=== PATIENT | male | born 1970 | race Hispanic/Latino ===

== ENCOUNTER 2024-03-10 22:24 | Emergency (ER) | payer BC ==
--- OUTSIDE RECORDS SUMMARY | 2024-03-10 22:26 | XMS REPORT | Continuity of Care Document ---
Author Name Unknown Address [address] [place] [address] [facility] thconnect Address [address] [place] [address] Care Team Providers Care Parliamentary Archivist Name Role Phone LEO OSBORN Primary Care Physician Unavailab CAROLYN Garcia Attending Clinician Unavailable CAROLYN PURI Attending Clinician Unavailable Lilly MELENDEZ, Christopher Galaviz Attending Clinician [phone] Carolyn Puri MD Attending Clinician [phone] Payers Payer Name Policy Type Policy Number Effective Date Expirati on Date Source [facility] [id number] 2022 00:00:00 Allergies, Adverse Reactions, Alerts Allergy Name Allergy Type Status Severity Reaction(s) Onset Date Inactive Date Treating Clinician Comments Source NO KNOWN ALLERGIE S Drug Class Active [facility] Social History Social Habit Start Date Stop Date Quantity Comments Source Sexual orientation U [facility] Sex assigned at 1970 00:00:00 1970 00:00:00 [facility] Smoking Status Start Date Stop Date Source Tobacco smoking consumption unknown [facility] Medications Ordered Medication Name Filled Medication Name Start Date Stop Date Current Medication? Ordering Clinician Indication Dosage Frequency Signature (SIG) Comments Components Source cefTRIAXone (ROCEPHIN) 1,000 mg in NaCl 0.9% (NS) 100 mL MINI-BAG 01-19 01:45: 00 01-19 02:52 :00 No 1000mg 1,000 mg, IV Piggyback, ONCE, 1 dose, On 01/19/24 at 2045, Administer over 30 Minutes, 100 mL, Reason for Anti-Infec tive: Documented Infection, Documented Infection Site: Urine, Duration of Therapy: Once (ED) [facility] cefdinir 300 mg capsule 01-18 00:00: 00 Yes [id number] 300mg Take 1 capsule by mouth every 12 (twelve) hours. [facility] tamsulosin 0.4 mg 24 hr capsule 01-18 00:00: 00 Yes [id number] .4mg Take 1 capsule by mouth at bedtime. [facility] traMADoL (ULTRAM) 50 mg tablet 01-18 00:00: 00 Yes [id number] 50mg Take 1 tablet by mouth every 6 (six) hours as needed for Pain (scale 7-10). Indication s: acute pain [facility] ondansetron (ZOFRAN) 4 mg tablet 01-18 00:00: 00 Yes [id number] 4mg Take 1 tablet by mouth every 8 (eight) hours as needed for Nausea and Vomiting (N/V). [facility] Vital Signs Vital Name Observation Time Observation Value Comments S ource Systolic blood pressure 2024-01-20 02:30:00 122 mm[Hg] [facility] Diastolic blood pressure 2024-01-20 02:30:00 80 mm[Hg] [facility] Heart rate 2024-01-20 02:30:00 75 /min [facility] Oxygen saturation in Arterial blood by Pulse oximetry 2024-01-20 02:30:00 94 /min [facility] Body temperature 2024-01-19 23:07:00 37.28 Alicia [facility] Respiratory rate 2024-01-19 23:07:00 18 /min [facility] Body height 2024-01-19 23:07:00 167.6 cm [facility] Body weight 2024-01-19 23:07:00 83.915 kg [facility] BMI 2024-01-19 23:07:00 29.86 kg/m2 [facility] Procedures Procedure Date / Time Performed Performing Clinicia n Source CT ABDOMEN PELVIS WO CONTRAST 2024-01-20 00:34:54 Christopher Aden [facility] URINALYSIS 2024-01-19 23:40:00 Christopher Aden [facility] LIPASE 2024-01-19 23:38:00 Christopher Aden [facility] COMP. METABOLIC PANEL ([id number]) 2024-01-19 23:38:00 Christopher Aden [facility] CBC WITH DIFF 2024-01-19 23:38:00 [facility] COVID NAAT 2024-01-19 23:38:00 Christopher Aden [facility] Encounters Start Date/Time End Date/Time Encounter Type Admission Type Attending Clinicians Care Facility Care Department Encounter ID Source 2024-01-19 18:09:00 2024-01-19 21:58:00 Emergency X CAROLYN PURI WAKILI [facility] ERT [id number] [facility] 2024-01-19 18:09:00 2024-01-19 21:58:00 Emergency Lilly, Carolyn Tate S [facility] [id number] [facility] Results Test Description Test Time Test Comments Results Resul t Comments Source CT ABDOMEN PELVIS WO CONTRAST 2023-12-24 0 01:13:46 ORDERING PHYSICIAN: CHRISTOPHER ADEN HISTORY: ?Flank pain, kidney stone suspected left flank to LLQ pain TECHNIQUE: CT images were obtained through the abdomen and pelvis withoutIV or PO contrast. ?This examination was performed with a MARLEN principles. COMPARISON EXAMINATIONS: none available FINDINGS: Minimal bibasilar atelectasis versus scarring. Osseous structures appear intact. Mild hepatomegaly. No evidence for intrahepatic ductal dilatation or focalmass. Gallbladder demonstrates a normal noncontrast CT appearance. Spleen demonstrates a normal noncontrast CT appearance. Pancreas demonstrates a normal noncontrast CT appearance. Adrenal glands demonstrate a normal noncontrast CT appearance. The right renal collecting system demonstrates fullness without evidencefor azalea hydronephrosis. The right distal ureter appears dilated up to andincluding the ureterovesical junction. The left kidney demonstrates a staghorn type calculus in the upper pole.Small subcentimeter stones are noted in the lower pole, measuring up to 9mm. No evidence for left hydronephrosis. The left distal ureter appearsmildly dilated ureterovesical junction. No abnormally enlarged lymph nodes are noted. No evidence for bowel obstruction. A normal appearing appendix is not identified with certainty but there areno secondary signs to suggest acute appendicitis. No ascites is noted. Urinary bladder wall posteriorly demonstrates suggestion of mild focalthickening. [facility] Notes Date/Time Note Provider Source 2024-01-19 21:55:01 Dc instructions and prescriptions for cefdinir, tamsulosin, tramadol, and zofran reviewed with patient and his . They will fill the prescriptions and take as directed. They will contact the referred urologist's office in the morning for the follow up appointment. The patient denied need for pain med prior to DC. He left the Ed ambulatory with spouse-alert, warm, dry, pink, in no distress. RA [facility] Jairo Sloiz RN [facility] 2024-01-19 18:42:26 Patient states has frequency and left flank tenderness despite passing kidney stones on . Has been having fevers as well-temp 101 this morning. [facility] 2024-01-19 18:05:43 Patient states that he passed 3 kidney stones on and feels like he is still running fever. Patient was referred to the ER by the Urgent Care for urinary tract infection. [facility] 2024-01-19 17:49:00 [facility] Emergency Department Note Patient Name: Martin Kohli Date of : 1970 53 year old male Treatment Room: Room/bed info not found Primary Care Physician: No primary care provider on file. Patient Escorted by: Family [5] Mode of Arrival: Personal means [1] EMS Treatment Prior to ED Arrival: SOLAR TECH treatment: None Travel and Exposure Screening: Symptoms Does patient have any of these symptoms?: (not recorded) Exposure Screening Has patient had contact with someone with a communicable disease in the last month?: (not recorded) Diseases exposed to:: (not recorded) Is Patient ?: (not recorded) Exposure Date: (not recorded) Chief Complaint: Chief Complaint Patient presents with Fever History of Present Illness: Onset 01/12 with acute onset left flank pain radiating to LLQ. Constant with wax/wane intensity. Believes he passed three kidney stones on 01/15 resulting in improved pain level, though not resolved. (+) fever with tmax 103F at onset, and low grade persistent fever. (+) dysuria, malodorous urine. Took Azo and noted discoloration. (+) diaphoresis at onset. Transient nausea. No vomiting, diarrhea.. No history of kidney stones. No prior similar symptoms. History provided by: Patient and spouse Past Medical History/Immunizations: History reviewed. No pertinent past medical history. Tetanus received in last 5 years: Unknown Allergies: No Known Allergies Past Social History: Substance & Sexual Activity No substance use or sexual activity history on file. Past Surgical History: History reviewed. No pertinent surgical history. Review of Systems: Review of Systems Constitutional: Positive for fever. HENT: Negative. Eyes: Negative. Respiratory: Negative. Cardiovascular: Negative. Gastrointestinal: Positive for abdominal pain and nausea. Negative for diarrhea and vomiting. Genitourinary: Positive for dysuria, frequency and flank pain. Skin: Negative. Neurological: Negative. Psychiatric/Behavioral: Negative. Physical Exam: ED Triage Vitals [01/19/24 1807] Weight 83.9 kg (185 lb) Actual or estimated Height 1.676 m (5' 6") BP (!) 158/93 Pulse 78 Resp 18 Temp 37.3 ?C (99.1 ?F) Temp source Oral SpO2 99 % Measured on Room air Physical Exam Vitals and nursing note reviewed. Constitutional: General: He is not in acute distress. Appearance: Normal appearance. He is not ill-appearing, toxic-appearing or diaphoretic. HENT: Head: Normocephalic and atraumatic. Right Ear: External ear normal. Left Ear: External ear normal. Nose: Nose normal. Mouth/Throat: Mouth: Mucous membranes are moist. Eyes: Extraocular Movements: Extraocular movements intact. Conjunctiva/sclera: Conjunctivae normal. Cardiovascular: Rate and Rhythm: Normal rate and regular rhythm. Pulmonary: Effort: Pulmonary effort is normal. No respiratory distress. Breath sounds: Normal breath sounds. No wheezing, rhonchi or rales. Abdominal: General: There is no distension. Palpations: Abdomen is soft. Tenderness: There is no abdominal tenderness. There is left CVA tenderness. There is no right CVA tenderness. Musculoskeletal: General: Normal range of motion. Cervical back: Normal range of motion. Skin: General: Skin is warm and dry. Neurological: General: No focal deficit present. Mental Status: He is alert. Psychiatric: Mood and Affect: Mood normal. Behavior: Behavior normal. Thought Content: Thought content normal. Judgment: Judgment normal. Radiology: No orders to display Lab Results: Lab Results - No data to display EKG: If EKG completed, see Procedure Note. Orders and Treatments: Orders Placed This Encounter Procedures CT ABDOMEN PELVIS WO CONTRAST Influenza A B RSV COVID NAAT CBC WITH DIFF URINALYSIS COMP. METABOLIC PANEL (86374) LIPASE No orders of the defined types were placed in this encounter. First Provider Eval: ED Events Date/Time Event User Comments 01/19/241751 Medical Screening Begins CHRISTOPHER ADEN MD -- 01/19/241751 First Provider Evaluation CHRISTOPHER ADEN MD -- ED COURSE ED Course as of 01/19/242048 Sun Jan 19, 2024 182 Declines pain and nausea medication at time of initial assessment. [RK] ED Course User Index [RK] Christopher Aden MD Diagnosis/Impression as of 01/19/242048 Febrile illness Flank pain Renal calculi Acute cystitis without hematuria LATESHA (acute kidney injury) Procedures: Procedures MDM: Medical Decision Making Primary impression: left flank pain Secondary impression: nausea, recurrent fever Differential Diagnoses, including but not limited to: electrolyte / glucose abnl, anemia, LATESHA, kidney stone, cystitis, pyelonephritis Problems Addressed: Febrile illness: acute illness or injury Flank pain: acute illness or injury Amount and/or Complexity of Data Reviewed Independent Historian: Details: self Labs: ordered. Decision-making details documented in ED Course. Radiology: ordered. Decision-making details documented in ED Course. Risk Risk Details: Care transferred to Dr Puri at 1900 with studies and dispo pending. Flowsheet Documentation: Scoring Tools: No data recorded Disposition/Condition: ED Disposition None Discharge Medications: Patient's Medications No medications on file Follow-up: Care transferred to Dr Puri at 1900 with studies and dispo pending. Electronically signed by: Christopher Aden MD 01/19/241842 T [facility]
[2024-03-10] MEDS ORDERED: ACETAMINOPHEN 500 MG TAB ONE (22:49)
[2024-03-10] MEDS ORDERED: ONDANSETRON 4 MG/2 ML VIAL ONE (22:49)
[2024-03-10] MEDS ORDERED: MORPHINE 4 MG/ML SYR ONE (22:49)
[2024-03-10] MEDS ORDERED: NA CHLORIDE 0.9% 1,000 ML ONE (22:50)
[2024-03-10] MEDS ORDERED: CEFEPIME 2 GM VIAL ONE (22:50)
[2024-03-10] MEDS ORDERED: NA CHLORIDE 0.9% 3,000 ML ONE (22:50)
[2024-03-10] MEDS ORDERED: NA CHLORIDE 0.9% 100 ML ONE (22:51)
[2024-03-10] MEDS ORDERED: VANCOMYCIN 1 GM/VIAL ONE (22:51)
[2024-03-10 23:53] LABS: Specific Gravity 1.014 (1.005-1.030); Sqamous Epithelial None Seen /HPF (None Seen); Urine Bacteria 20-50 /HPF (<20); Urine Bilirubin NEGATIVE (Negative); Urine Blood 1+ (Negative); Urine Clarity Turbid (Clear); Urine Color Yellow (Yellow); Urine Culture Reflex Order REFLEXED; Urine Glucose NEGATIVE (Negative); Urine Ketones NEGATIVE (Negative); Urine Microscopic Reflex YN ORDER UMIC; Urine Mucus Slight /HPF (None Seen); Urine Nitrite NEGATIVE (Negative); Urine Protein TRACE (Negative); Urine Urobilinogen 1+ (Normal); Urine WBC 20-50 /HPF (<5); Urine WBC Clump Rare /HPF (None Seen)
[2024-03-10 23:54] LABS: Absolute Eosinophils 0.1 K/uL (0-0.5); Absolute Lymphocytes (CBC) 0.6 K/uL (0.7-4.9); Absolute Monocytes 0.1 K/uL (0.1-1.3); Absolute Neutrophil 4.3 K/uL (1.8-8.0); Basophils % 0.2 % (0-1.3); Eosinophils % 1.1 % (0-4.4); Hematocrit 33.4 % (39.6-49.0); Hemoglobin 11.9 g/dL (13.6-17.9); Lymphocytes % 11.6 % (15.3-44.8); MCH 26.8 pg (27.0-35.0); MCHC 35.7 g/dL (32.0-36.0); MPV 7.9 fL (7.6-11.3); Monocytes % 2.7 % (3.3-12.3); Neutrophils % 84.4 % (41.7-73.7); Nucleated Red Blood Cells % 0.2 % (0-0); Platelets 196 thou/uL (152-406); RBC Red Blood Cell Count 4.45 M/uL (4.33-5.43); Red Cell Distribution Width 14.8 % (12.1-15.2)
[2024-03-10 23:55] LABS: PT Prothrombin Time 15.1 SECONDS (9.4-12.5); PTT, Activated Partial Thromb 30.5 SECONDS (24.3-36.9); Protime INR 1.36
[2024-03-11 00:16] LABS: Albumin 2.9 g/dL (3.4-5.0); Albumin/Globulin Ratio 0.7 (1.1-1.8); Bilirubin Total 1.9 mg/dL (0.2-1.0); Globulin 4.3 g/dL (2.3-3.5); Protein, Total 7.2 g/dL (6.4-8.2); Thyroid Stimulating Hormone 0.827 uIU/mL (0.358-3.740); Troponin High Sensitivity 22.5 pg/mL (<58.9)
[2024-03-11 00:19] LABS: SARS-CoV-2 Antigen CONTROL BLUE LINE VIS/BG OK; SARS-CoV-2 Antigen Rapid Res Negative (Negative)
[2024-03-11] MEDS ORDERED: ALBUMIN HUMAN 25% 200 ML IV ONE (00:34)
--- NOTE | 2024-03-11 02:25 | RAD REPORT ---
EXAM DESCRIPTION: Extrem Venous W Compress Robson [employer]: US EXTREMITY VEINS BILATERAL CLINICAL HISTORY: 54 years Male; bilateral leg pain TECHNIQUE: Spectral analysis and color/grayscale sonographic images of both legs were obtained utilizing a high- frequency linear array transducer supplemented with color Doppler, compression and augmentation techniques. COMPARISON: None. FINDINGS: Right leg veins: Common femoral: normal Greater saphenous: normal Superficial femoral: normal Popliteal: normal Calf Veins: normal Left leg veins: Common femoral: normal Greater saphenous: normal Superficial femoral: normal Popliteal: normal Calf Veins: normal IMPRESSION: 1. No sonographic evidence for lower extremity deep venous thrombosis in either leg. Electronically signed by: Luis Carlos Trejo MD 03/11/2024 02:21 AM [facility] Z9 Due to temporary technical issues with the PACS/SuperDerivativesibe reporting system, reports are being signed by the in-house radiologist without review as a courtesy to ensure prompt reporting the interpreting radiologist is fully responsible for the content of the report. Transcribed Date/Time: 03/11/2024 2:25 AM
--- NOTE | 2024-03-11 03:40 | RAD REPORT ---
CLINICAL HISTORY: Abdominal distention. COMPARISON: None. TECHNIQUE: CT CHEST ABDOMEN PELVIS WITHOUT IV CONTRAST on 03/10/2024 10:41 PM [facility] [facility] This exam was performed according to our departmental dose-optimization program, which includes autom ated exposure control, adjustment of the mA and/or kV according to patient size and/or use of iterative reconstruction technique. FINDINGS: Chest: The heart is normal in size. There is no pericardial effusion. Intrathoracic lymph nodes are n ot enlarged. There is no pleural effusion, pleural thickening or pneumothorax. Central airways are patent. There i s moderate bibasilar atelectasis with possible left lower lobe pneumonia component. Abdomen: The liver is normal in appearance. There is no biliary dilatation. Gallbladder is normal in appearance. The pancreas and spleen are normal in appearance. Adrenal glands are normal. There is mild to moderate right renal atrophy. Left kidney contains 3 clusters of calcifications with the larg est measuring 12 mm. There is mild left hydronephrosis with a 9 mm proximal left ureteral calculus. Abdominal aorta is normal in course and caliber without aneurysm. There is no free air. There is no r etroperitoneal adenopathy. Pelvis: There is no bowel obstruction. Urinary bladder is unremarkable. There is no free fluid. Appen netta is not clearly seen. Skeleton: There are no acute osseous findings. No suspicious bony lesions. IMPRESSION: Left nephrolithiasis with a mildly obstructing 9 mm proximal left ureteral calculus. Bibasilar atelectasis with possible left lower lobe pneumonia. Electronically signed by: Kj Ortega MD 03/11/2024 03:22 AM [facility] [facility] RP Due to temporary technical issues with the PACS/[employer] reporting system, reports are being maury d by the in-house radiologist without review as a courtesy to ensure prompt reporting the interpreting radiologist is fully responsible for the content of the report. Transcribed Date/Time: 03/11/2024 3:40 AM
--- NOTE | 2024-03-11 05:18 | EDPHYS ---
Physician Documentation [facility] Name: Martin Kohli Age: 54 yrs Sex: Male : 1970 Arrival Date: 03/10/2024 Time: 22:24 Bed 5 Private MD: Magdalena Peter H ED Physician Praneeth Suárez HPI: 03/10 22:29 This 54 yrs old Male presents to ER via Unassigned with complaints of Fever. sp4 23:07 54-year-old male right-sided abdominal pain and generalized weakness. On arrival sp4 patient is febrile at 103.4 Patient presents with past medical history of kidney stones presents with acute onset of high fever diaphoresis, right abdominal pain, and nausea vomiting. . Historical: - Allergies: 22:42 No Known Allergies; jb4 - PMHx: 22:42 None; jb4 - PSHx: 22:42 None; jb4 - Immunization history:: Adult Immunizations not up to date. - Infectious Disease History:: Denies. - Social history:: Smoking status: Patient denies any tobacco usage or history of. Patient uses alcohol, occasionally. - Family history:: not pertinent. ROS: 23:07 Constitutional: Positive fever, positive chills, positive diaphoresis, positive sp4 abdominal pain, positive nausea vomiting, positive generalized weakness 23:07 All other systems are negative, Exam: 23:07 Constitutional: This is a well developed, well nourished patient who is ill-appearing, sp4 toxic appearing, tachycardic, febrile on arrival and dyspneic. Head/Face: Normocephalic, atraumatic. Eyes: Pupils equal round and reactive to light, extra-ocular motions intact. Lids and lashes normal. Conjunctiva and sclera are not injected. Cornea within normal limits. Periorbital areas with no swelling, redness, or edema. ENT: Nares patent. No nasal discharge, no septal abnormalities noted. Tympanic membranes are normal and external auditory canals are clear. Oropharynx with no redness, swelling, or masses, exudates, or evidence of obstruction, uvula midline. Mucous membranes moist. Neck: Trachea midline, no thyromegaly or masses palpated, and no cervical lymphadenopathy. Supple, full range of motion without nuchal rigidity, or vertebral point tenderness. Chest/axilla: Normal chest wall appearance and motion. Nontender with no deformity. No lesions are appreciated. Cardiovascular: Diaphoresis, tachycardia, fever, no gallops, murmurs, or rubs. Normal PMI, no JVD. No pulse deficits. Respiratory: Lungs have equal breath sounds bilaterally, clear to auscultation and percussion. No rales, rhonchi or wheezes noted. Positive dyspnea and tachypnea positive mild retractions Abdomen/GI: Soft, with normal bowel sounds. No distension or tympany. No guarding or rebound. No evidence of tenderness throughout. Back: No spinal tenderness. No costovertebral tenderness. Skin: Warm, dry with normal turgor. Normal color with no rashes, no lesions, and no evidence of cellulitis. MS/ Extremity: Pulses equal, no cyanosis. Neurovascular intact. Full, normal range of motion. Neuro: Awake and alert, GCS 15, oriented to person, place, time, and situation. Cranial nerves II-XII grossly intact. Motor strength 5/5 in all extremities. Sensory grossly intact. Psych: Awake, alert, with orientation to person, place and time. Behavior, mood, and affect are within normal limits 23:07 ECG was reviewed by the Attending Physician. EKG 2243 sinus tachycardia rate 158. Vital Signs: 22:39 BP 119 / 68; Pulse 159; Resp 28; Temp 103.4(O); Pulse Ox 92% on R/A; Weight 81.65 kg jb4 (R); Height 5 ft. 5 in. (R); Pain 0/10; 23:49 BP 123 / 82; Pulse 124; Resp 22; Pulse Ox 95% ; cp4 11/20 00:25 BP 97 / 64; Pulse 109; Resp 18; Pulse Ox 95% ; cp4 00:56 BP 93 / 59; Pulse 103; Resp 18; Pulse Ox 95% ; cp4 01:12 Temp 97.8(O); cp4 01:32 BP 92 / 59; Pulse 102; Resp 18; Pulse Ox 96% on 2 lpm NC; cp4 02:23 BP 96 / 61; Pulse 93; Resp 18; Pulse Ox 98% on 2 lpm NC; cp4 03:00 BP 96 / 63; Pulse 92; Resp 18; Pulse Ox 95% on 2 lpm NC; cp4 03:30 BP 97 / 73; Pulse 87; Resp 18; Pulse Ox 97% on 2 lpm NC; cp4 04:00 BP 103 / 80; Pulse 101; Resp 18; Pulse Ox 96% on 2 lpm NC; cp4 04:30 BP 103 / 76; Pulse 92; Resp 18; Pulse Ox 96% on 2 lpm NC; cp4 05:30 BP 103 / 81; Pulse 83; Resp 18; Pulse Ox 97% on 2 lpm NC; cp4 06:30 BP 110 / 75; Pulse 86; Resp 18; Pulse Ox 98% on 2 lpm NC; cp4 03/10 22:39 Body Mass Index 29.95 (81.65 kg, 165.1 cm) jb4 03/10 22:39 Pain Scale: Adult jb4 Lanagan Coma Score: 03/10 23:07 Eye Response: spontaneous(4). Motor Response: obeys commands(6). Verbal Response: sp4 oriented(5). Total: 15. MDM: 22:29 Medical Screening Exam initiated sp4 03/11 05:15 ED course: CLINICAL HISTORY: Abdominal distention. COMPARISON: None. 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 FINDINGS: Chest: The heart is normal in size. There is no pericardial effusion. Intrathoracic lymph nodes are not enlarged. There is no pleural effusion, pleural thickening or pneumothorax. Central airways are patent. There is moderate bibasilar atelectasis with possible left lower lobe pneumonia component. Abdomen: The liver is normal in appearance. There is no biliary dilatation. Gallbladder is normal in appearance. The pancreas and spleen are normal in appearance. Adrenal glands are normal. There is mild to moderate right renal atrophy. Left kidney contains 3 clusters of calcifications with the largest measuring 12 mm. There is mild left hydronephrosis with a 9 mm proximal left ureteral calculus. Abdominal aorta is normal in course and caliber without aneurysm. There is no free air. There is no retroperitoneal adenopathy. Pelvis: There is no bowel obstruction. Urinary bladder is unremarkable. There is no free fluid. Appendix is not clearly seen. Skeleton: There are no acute osseous findings. No suspicious bony lesions. IMPRESSION: Left nephrolithiasis with a mildly obstructing 9 mm proximal left ureteral calculus. Bibasilar atelectasis with possible left lower lobe pneumonia. Electronically signed by: Kj Ortega MD 03/11/2024 03:22 . ED course: EXAM DESCRIPTION: Extrem Venous W Compress Robson RadLex: US EXTREMITYVEINS BILATERAL CLINICAL HISTORY: 54 years Male; bilateral leg pain TECHNIQUE: Spectral analysis and color/grayscale sonographic images of both legs were obtained utilizing a high-frequency linear array transducer supplemented with color Doppler, compression and augmentation techniques. COMPARISON: None. FINDINGS: Right leg veins: Common femoral: normal Greater saphenous: normal Superficial femoral: normal Popliteal: normal Calf Veins: normal Left leg veins: Common femoral: normal Greater saphenous: normal Superficial femoral: normal Popliteal: normal Calf Veins: normal IMPRESSION: 1. No sonographic evidence for lower extremity deep venous thrombosis in either leg.. 05:17 Differential diagnosis: viral Infection, bacterial infection, URI, bronchitis, sp4 pneumonia UTI, gastroenteritis, meningitis. Data reviewed: vital signs, nurses notes, old medical records, lab test result(s), radiologic studies, CT scan, ultrasound. Consideration of Admission/Observation Escalation of care including admission/observation considered. ED course: Patient discussed with urologist accepted for transfer.. 05:18 ED course: Sepsis reevaluation complete after septic bolus of IV fluids, blood pressure sp4 stable 103/76 heart rate 92.. 03/10 22:29 Order name: SARS RAPID; Complete Time: 00:32 4 03/10 22:29 Order name: Influenza Screen (a \T\ B); Complete Time: 00:32 4 03/10 22:40 Order name: Blood Culture Adult (2) sp4 03/10 22:40 Order name: CBC with Diff; Complete Time: 00:32 4 03/10 22:40 Order name: CMP; Complete Time: 00:32 4 03/10 22:40 Order name: Lactate w/ 2H reflex if indic.; Complete Time: 00:32 4 03/10 22:40 Order name: Protime (+inr); Complete Time: 00:32 4 03/10 22:40 Order name: Ptt, Activated; Complete Time: 00:32 4 03/10 22:40 Order name: Urinalysis w/ reflexes; Complete Time: 00:32 sp4 03/10 23:38 Order name: Glucose, Ancillary Testing; Complete Time: 00:32 EDMS 03/10 23:44 Order name: Troponin High Sensitivity; Complete Time: 00:32 EDMS 03/10 23:44 Order name: NT PRO-BNP; Complete Time: 00:32 EDMS 03/10 23:44 Order name: C-Reactive Protein; Complete Time: 00:32 EDMS 03/10 23:44 Order name: T4 Free; Complete Time: 00:32 EDMS 03/10 23:44 Order name: Thyroid Stimulating Hormone; Complete Time: 00:32 EDMS 03/10 23:57 Order name: Urine Culture EDCT 03/11 00:28 Order name: Chest Abd Pelvis Wo Con EDCT 03/11 01:12 Order name: Extrem Venous W Compression Robson US sp4 03/10 22:40 Order name: EKG; Complete Time: 22:40 4 03/10 22:40 Order name: Accucheck; Complete Time: 23:30 sp4 03/10 22:40 Order name: Cardiac monitoring; Complete Time: 23:23 sp4 03/10 22:40 Order name: EKG - Nurse/Tech; Complete Time: 23:23 sp4 03/10 22:40 Order name: IV Saline Lock - Large Bore; Complete Time: 23:23 sp4 03/10 22:40 Order name: Labs collected and sent; Complete Time: 23:23 sp4 03/10 22:40 Order name: O2 Per Protocol; Complete Time: 23:23 sp4 03/10 22:40 Order name: O2 Sat Monitoring; Complete Time: 23:23 sp4 03/10 22:40 Order name: Vital Signs; Complete Time: 23:23 sp4 EC/19 23:07 Rate is 158 beats/min. Rhythm is regular, Sinus tachycardia. QRS Crane is Normal. MI sp4 interval is normal. QRS interval is normal. QT interval is normal. No Q waves. T waves are Normal. No ST changes noted. Clinical impression: No evidence of ischemia. Interpreted by me. Reviewed by me. Administered Medications: 23:22 Drug: morphine IVP or IV 4 mg IVP once over 4 mins Route: IVP; Infused Over: 4 mins; cp4 Site: left antecubital; 03/11 00:47 Follow up: Response: No adverse reaction; Pain is decreased cp4 03/10 23:22 Drug: Ondansetron IVP 8 mg IVP once; over 2 minutes Route: IVP; Site: left antecubital; cp4 03/11 00:48 Follow up: Response: No adverse reaction cp4 03/10 23:23 Drug: NS 0.9% IV (30 ml/kg) 30 ml/kg IV at bolus once; Sepsis Protocol; to be given as cp4 a bolus over 90 minutes Route: IV; Rate: bolus; Site: right antecubital; 03/11 00:49 Follow up: Response: No adverse reaction; IV Status: Completed infusion cp4 03/10 23:23 Drug: vancoMYCIN IVPB 20 mg/kg IVPB once; once over 2 hours; not to exceed 2 grams; cp4 (mix in 250 to 500mL NS) Route: IVPB; Site: left antecubital; 03/11 01:30 Follow up: IV Status: Completed infusion cp4 03/10 23:23 Drug: Cefepime IVPB 2 grams IVPB at 200 ml/hr once over 30 mins; (mix in NS 100 mL) cp4 Route: IVPB; Rate: 200 ml/hr; Infused Over: 30 mins; Site: right antecubital; 03/11 00:05 Follow up: IV Status: Completed infusion cp4 03/10 23:23 Not Given (Patient already takenn): [id number] mg PO once cp4 03/11 00:43 Drug: Albumin IVPB 25 grams 100 ml IVPB once; (Note: Albumin 25% concentration) Volume: cp4 100 ml; Route: IVPB; Site: right antecubital; 01:28 Follow up: Response: No adverse reaction; IV Status: Completed infusion cp4 00:47 Drug: NS 0.9% IV 1000 ml IV at 125 ml/hr continuous Route: IV; Rate: 125 ml/hr; Site: cp4 right antecubital; 07:23 Follow up: Response: No adverse reaction; IV Status: Infusion continued upon transfer ko1 01:28 Drug: Albumin IVPB 25 grams 100 ml IVPB once; (Note: Albumin 25% concentration) Volume: cp4 100 ml; Route: IVPB; Site: right antecubital; 02:10 Follow up: IV Status: Completed infusion cp4 Disposition Summary: 03/11/24 05:17 Transfer Ordered Notes: Transfer Location: [facility] sp4 Reason: Higher level of care sp4 Condition: Stable sp4 Problem: new sp4 Symptoms: have improved sp4 [facility] ko1 Diagnosis - Acute left ureteral calculus with pyelonephritis, sepsis without septic shock, sp4 obstructing left ureteral calculus with hydronephrosis Forms: - Medication Reconciliation Form sp4 - SBAR form sp4 Critical care time excluding procedures: 05:17 Critical care time: Bedside Care: 36 minutes, Consultation: 12 minutes, Family sp4 Intervention: 12 minutes. Total time: 60 minutes Signatures: Dispatcher [employer] EDMS Austin Marks RN RN jb4 Sadie Westbrook RN RN ko1 Praneeth Suárez MD MD sp4 Rosanne Perez cp4 Corrections: (The following items were deleted from the chart) 03/10 23:43 22:43 Troponin High Sensitivity+C.LAB.BRZ ordered. EDMS EDMS 23:43 22:43 PROBNP+C.LAB.BRZ ordered. EDMS EDMS 23:43 22:43 C-REACTIVE PROTEIN+C.LAB.BRZ ordered. EDMS EDMS 23:43 22:43 THYROID STIMULAT HORMONE+C.LAB.BRZ ordered. EDMS EDMS 23:43 22:43 T4 FREE+C.LAB.BRZ ordered. EDMS EDMS 03/11 00:28 03/10 22:41 Chest Abdomen Pelvis W Con+CT.RAD.BRZ ordered. EDMS EDMS 03/11 08:15 05:17 [facility] ko[facility]
--- NOTE | 2024-03-11 05:18 | ER ---
Nurse's Notes [facility] Name: Martin Kohli Age: 54 yrs Sex: Male : 1970 Arrival Date: 03/10/2024 Time: 22:24 Bed 5 Private MD: Magdalena Peter H Diagnosis: Acute left ureteral calculus with pyelonephritis, sepsis without septic shock, obstructing left ureteral calculus with hydronephrosis Presentation: 03/10 22:39 Chief complaint: Patient states: I passed a large kidney stone on Saturday and have had a jb4 fever since. I took 2 tylenol about 30minutes ago. Coronavirus screen: At this time, the client does not indicate any symptoms associated with coronavirus-19. Ebola Screen: No symptoms or risks identified at this time. Initial Sepsis Screen: Does the patient meet any 2 criteria? RR > 20 per min. Temp <36.0*C (96.8*F)) or > 38.3*C (100.9*F). HR > 90 bpm. Yes Does the patient have a suspected source of infection? No. Patient's initial sepsis screen is negative. Risk Assessment: Do you want to hurt yourself or someone else? Patient reports no desire to harm self or others. Onset of symptoms was March 10, 2024. Transition of care: patient was not received from another setting of care. 22:39 Method Of Arrival: Wheelchair jb4 22:39 Acuity: ESTEPHANIA 2 jb4 Triage Assessment: 22:42 General: Appears in no apparent distress. uncomfortable, ill, Behavior is calm, jb4 cooperative. Pain: Denies pain. Neuro: Level of Consciousness is awake, alert, obeys commands, Oriented to person, place, time, situation. Cardiovascular: Skin is hot and diaphoretic.. Respiratory: Airway is patent Respiratory effort is even, unlabored, Respiratory pattern is regular, symmetrical. : Reports recently passed kidney stones. Derm: Skin is intact, Skin is diaphoretic, Skin is normal, Skin temperature is hot. Musculoskeletal: No signs and/or symptoms reported regarding the musculoskeletal system. Historical: - Allergies: 22:42 No Known Allergies; jb4 - PMHx: 22:42 None; jb4 - PSHx: 22:42 None; jb4 - Immunization history:: Adult Immunizations not up to date. - Infectious Disease History:: Denies. - Social history:: Smoking status: Patient denies any tobacco usage or history of. Patient uses alcohol, occasionally. - Family history:: not pertinent. Screenin:31 [facility] ED Fall Risk Assessment (Adult) History of falling in the last 3 months, cp4 including since admission No falls in past 3 months (0 pts) Confusion or Disorientation No (0 pts) Intoxicated or Sedated No (0 pts) Impaired Gait No (0 pts) Mobility Assist Device Used No (0 pt) Altered Elimination No (0 pt) Score/Fall Risk Level 0 - 2 = Low Risk Oriented to surroundings, Maintained a safe environment, Assessed \T\ reinforced patient's understanding of fall precautions, Hourly rounding (assess needs \T\ fall precautionary measures) done. Abuse screen: Denies threats or abuse. Nutritional screening: No deficits noted. Tuberculosis screening: No symptoms or risk factors identified. Assessment: 23:31 General: Appears in no apparent distress. uncomfortable, Behavior is calm, cooperative, cp4 appropriate for age. Pain: Denies pain. Neuro: Level of Consciousness is awake, alert, obeys commands, Oriented to person, place, time, situation. Cardiovascular: Patient's skin is warm and dry. Rhythm is sinus tachycardia. Respiratory: Airway is patent Respiratory effort is even, unlabored. GI: No signs and/or symptoms were reported involving the gastrointestinal system. : No signs and/or symptoms were reported regarding the genitourinary system. EENT: No signs and/or symptoms were reported regarding the EENT system. Derm: No signs and/or symptoms reported regarding the dermatologic system. Musculoskeletal: No signs and/or symptoms reported regarding the musculoskeletal system. 03/11 00:30 Reassessment: Patient appears in no apparent distress at this time. Patient and/or cp4 family updated on plan of care and expected duration. Pain level reassessed. Patient is alert, oriented x 3, equal unlabored respirations, skin warm/dry/pink. 01:35 Reassessment: No changes from previously documented assessment. Patient and/or family cp4 updated on plan of care and expected duration. Pain level reassessed. Patient is alert, oriented x 3, equal unlabored respirations, skin warm/dry/pink. 02:30 Reassessment: Patient appears in no apparent distress at this time. Patient and/or cp4 family updated on plan of care and expected duration. Pain level reassessed. Patient is alert, oriented x 3, equal unlabored respirations, skin warm/dry/pink. 03:30 Reassessment: Patient appears in no apparent distress at this time. Patient and/or cp4 family updated on plan of care and expected duration. Pain level reassessed. Patient is alert, oriented x 3, equal unlabored respirations, skin warm/dry/pink. 04:30 Reassessment: Patient appears in no apparent distress at this time. Patient and/or cp4 family updated on plan of care and expected duration. Pain level reassessed. Patient is alert, oriented x 3, equal unlabored respirations, skin warm/dry/pink. 05:30 Reassessment: Patient appears in no apparent distress at this time. Patient and/or cp4 family updated on plan of care and expected duration. Pain level reassessed. Patient is alert, oriented x 3, equal unlabored respirations, skin warm/dry/pink. 06:30 Reassessment: Patient appears in no apparent distress at this time. Patient and/or cp4 family updated on plan of care and expected duration. Pain level reassessed. Patient is alert, oriented x 3, equal unlabored respirations, skin warm/dry/pink. 07:19 Reassessment: Attempted to call report, nurses are in shift change and the assignment ko1 has not been made yet, requested that I call back in 15 minutes. 07:42 Reassessment: attempted to call report again and was told everyone was still in report ko1 and to call back in 10 minutes, charge nurse ALLYN Duque aware. Vital Signs: 03/10 22:39 BP 119 / 68; Pulse 159; Resp 28; Temp 103.4(O); Pulse Ox 92% on R/A; Weight 81.65 kg jb4 (R); Height 5 ft. 5 in. (R); Pain 0/10; 23:49 BP 123 / 82; Pulse 124; Resp 22; Pulse Ox 95% ; cp4 03/11 00:25 BP 97 / 64; Pulse 109; Resp 18; Pulse Ox 95% ; cp4 00:56 BP 93 / 59; Pulse 103; Resp 18; Pulse Ox 95% ; cp4 01:12 Temp 97.8(O); cp4 01:32 BP 92 / 59; Pulse 102; Resp 18; Pulse Ox 96% on 2 lpm NC; cp4 02:23 BP 96 / 61; Pulse 93; Resp 18; Pulse Ox 98% on 2 lpm NC; cp4 03:00 BP 96 / 63; Pulse 92; Resp 18; Pulse Ox 95% on 2 lpm NC; cp4 03:30 BP 97 / 73; Pulse 87; Resp 18; Pulse Ox 97% on 2 lpm NC; cp4 04:00 BP 103 / 80; Pulse 101; Resp 18; Pulse Ox 96% on 2 lpm NC; cp4 04:30 BP 103 / 76; Pulse 92; Resp 18; Pulse Ox 96% on 2 lpm NC; cp4 05:30 BP 103 / 81; Pulse 83; Resp 18; Pulse Ox 97% on 2 lpm NC; cp4 06:30 BP 110 / 75; Pulse 86; Resp 18; Pulse Ox 98% on 2 lpm NC; cp4 03/10 22:39 Body Mass Index 29.95 (81.65 kg, 165.1 cm) jb4 03/10 22:39 Pain Scale: Adult jb4 Ethan Coma Score: 03/10 23:07 Eye Response: spontaneous(4). Motor Response: obeys commands(6). Verbal Response: sp4 oriented(5). Total: 15. ED Course: 22:28 Patient arrived in ED. gm2 22:28 Magdalena Peter DO is Private Physician. gm2 22:29 Praneeth Suárez MD is Attending Physician. sp4 22:32 Rosanne Perez is Primary Nurse. cp4 22:42 Triage completed. jb4 22:42 Arm band placed on right wrist. Patient Physician notified of vitals and pt condition. jb4 23:10 Initial lab(s) drawn, by me, sent to lab. First set of blood cultures drawn Second set cp4 of blood cultures drawn Urine collected: clean catch specimen, clear, dusty colored. 23:31 Bed in low position. Call light in reach. Side rails up X 1. cp4 23:31 No provider procedures requiring assistance completed. Inserted saline lock: 20 gauge cp4 in right in left antecubital area, using aseptic technique. Blood collected. Flushed with 10 mL NS Accessed. 23:33 EKG done, by ED staff, reviewed by Praneeth Suárez MD COVID swab sent to lab. Flu cp4 and/or RSV swab sent to lab. 03/11 01:49 Extrem Venous W Compression Robson US In Process Unspecified. EDMS 02:48 Chest Abd Pelvis Wo Con In Process Unspecified. EDMS 06:09 Initiated transfer with [place] at [facility]. rv1 07:34 Patient transferred, IV remains in place. ko1 07:53 pt accepted in transfer to [facility] rm [address] Lopez admin approval given by gustavo Hahn M, pt will be transported by ems. 08:07 Provided Education on: transfer. Report given to ALLYN Hays at [facility]. ko1 Administered Medications: 03/10 23:22 Drug: morphine IVP or IV 4 mg IVP once over 4 mins Route: IVP; Infused Over: 4 mins; cp4 Site: left antecubital; 03/11 00:47 Follow up: Response: No adverse reaction; Pain is decreased cp4 03/10 23:22 Drug: Ondansetron IVP 8 mg IVP once; over 2 minutes Route: IVP; Site: left antecubital; cp4 03/11 00:48 Follow up: Response: No adverse reaction cp4 03/10 23:23 Drug: NS 0.9% IV (30 ml/kg) 30 ml/kg IV at bolus once; Sepsis Protocol; to be given as cp4 a bolus over 90 minutes Route: IV; Rate: bolus; Site: right antecubital; 03/11 00:49 Follow up: Response: No adverse reaction; IV Status: Completed infusion cp4 03/10 23:23 Drug: vancoMYCIN IVPB 20 mg/kg IVPB once; once over 2 hours; not to exceed 2 grams; cp4 (mix in 250 to 500mL NS) Route: IVPB; Site: left antecubital; 03/11 01:30 Follow up: IV Status: Completed infusion cp4 03/10 23:23 Drug: Cefepime IVPB 2 grams IVPB at 200 ml/hr once over 30 mins; (mix in NS 100 mL) cp4 Route: IVPB; Rate: 200 ml/hr; Infused Over: 30 mins; Site: right antecubital; 03/11 00:05 Follow up: IV Status: Completed infusion cp4 03/10 23:23 Not Given (Patient already takenn): [id number] mg PO once cp4 03/11 00:43 Drug: Albumin IVPB 25 grams 100 ml IVPB once; (Note: Albumin 25% concentration) Volume: cp4 100 ml; Route: IVPB; Site: right antecubital; 01:28 Follow up: Response: No adverse reaction; IV Status: Completed infusion cp4 00:47 Drug: NS 0.9% IV 1000 ml IV at 125 ml/hr continuous Route: IV; Rate: 125 ml/hr; Site: cp4 right antecubital; 07:23 Follow up: Response: No adverse reaction; IV Status: Infusion continued upon transfer ko1 01:28 Drug: Albumin IVPB 25 grams 100 ml IVPB once; (Note: Albumin 25% concentration) Volume: cp4 100 ml; Route: IVPB; Site: right antecubital; 02:10 Follow up: IV Status: Completed infusion cp4 Medication: 03/10 23:31 VIS not applicable for this client. cp4 Output: 23:52 Urine: 200ml (Voided); Total: 200ml. cp4 Outcome: 03/11 05:17 ER care complete, transfer ordered by . sp4 08:15 Patient left the ED. ko1 Addendum: 03/14/2024 07:23 Addendum: Culture Results: Positive blood culture. faxed culture report to [address] [place] [address]\[phone]. Signatures: Dispatcher [employer] EDMS Mel Shelton James, RN RN [email or web address] Sherrie Mejia Kathy, RN RN ko1 Jaye Power Sergey, MD MD sp4 Rosanne Perez Ginger gm2
[2024-03-11 08:26] VITALS: TEMP 97.8
[2024-03-11 08:37] VITALS: BP 110/75; O2SAT 98
--- NOTE | 2024-03-16 12:13 | EKG ---
Test Date: 2024-03-10 Test Time: 22:43:31 3D Artist: JUAN MEASUREMENT RESULTS: Intervals: Rate: 158 LA: 126 QRSD: 86 QT: 254 QTc: 411 [place]: P: 53 LA: 126 QRS: 127 T: 18 INTERPRETIVE STATEMENTS: Sinus tachycardia Left posterior fascicular block Cannot rule out Inferior infarct, age undetermined Abnormal ECG No previous ECG available for comparison Electronically Signed On 03-16-24 12:06:10 LEAD R[employer]ER by Richie Chen
== END 2024-03-11 08:15 | disposition short-term general hospital (02) ==
LOC: ER 22:24
DX: N13.2 Hydronephrosis with renal and ureteral calculous obstruction (principal); A41.9 Sepsis, unspecified organism; Z87.442 Personal history of urinary calculi; Z11.52 Encounter for screening for COVID-19
CPT/HCPCS: 87040 ×2; 87088; 85025; 81001; 87086; 36415; 87205 ×2; 85610; 82947; 83605; 85730; 84443; 87077; 87186; 84484; 84439; 80053; 83880; 86140; 87804 ×2; 71250; 74176; 93970; 87811; J0692; J2405; P9047; J7040; J7030; 93005